=== PATIENT | male | born 1935 | race Caucasian/White ===

== ENCOUNTER 2023-02-03 12:12 | Inpatient (IN) | payer MEDICARE, OTHER ==
[~2023-02-03] VITALS: Ht 165.1 cm; Wt 59.0 kg
[2023-02-03] MEDS ORDERED: TAMS-3 PO (12:29)
[2023-02-03] MEDS ORDERED: POLY17PO4 PO (12:29)
[2023-02-03] MEDS ORDERED: ACET325C7 PO (12:29)
[2023-02-03] MEDS ORDERED: PANT40TA2 PO (12:29)
[2023-02-03] MEDS ORDERED: ROSU20TA2 PO (12:29)
[2023-02-03] MEDS ORDERED: METF-442 PO (12:29)
[2023-02-03] MEDS ORDERED: GUAI-755 PO (12:29)
[2023-02-03] MEDS ORDERED: DOCU-141 PO (12:29)
[2023-02-03] MEDS ORDERED: GABA-532 PO (12:29)
[2023-02-03] MEDS ORDERED: QUET25TA PO (12:29)
[2023-02-03] MEDS ORDERED: INSU100V39 SQ (12:29)
[2023-02-03] MEDS ORDERED: CHOL400T28 PO (12:29)
[2023-02-03] MEDS ORDERED: IPRA3AMP23 IH (12:29)
[2023-02-03] MEDS ORDERED: SENN8.6T19 PO (12:29)
[2023-02-03] MEDS ORDERED: FINA5TAB11 PO (12:29)
[2023-02-03] MEDS ORDERED: EMPA25TA PO (12:29)
[2023-02-03] MEDS ORDERED: APIX2.5T PO (12:29)
[2023-02-03] MEDS ORDERED: LACT10SO58 PO (12:29)
[2023-02-03 12:48] LABS: HEMATOCRIT 40.4 % (36.7-47.1); MEAN CORPUSCULAR VOLUME 87.4 fL (73.0-96.2); PLATELET COUNT (AUTO) 196 K/uL (152-348)
[2023-02-03 13:03] LABS: ETHANOL < 3 MG/DL (0-0)
[2023-02-03 13:08] LABS: ALANINE AMINOTRANSFERASE 19 U/L (16-63); ALKALINE PHOSPHATASE 64 U/L (50-136); ASPARTATE AMINOTRANSFERASE 19 U/L (15-37); BILIRUBIN,DIRECT 0.1 mg/dL (0.0-0.2); BILIRUBIN,TOTAL 0.3 mg/dL (0.2-1.0); CARBON DIOXIDE 30 mmol/L (21-32); CHLORIDE 102 mmol/L (98-107); CREATININE 0.8 mg/dL (0.6-1.3); GLUCOSE 137 mg/dL (74-106); POTASSIUM 4.2 mmol/L (3.5-5.1); TOTAL PROTEIN, SERUM 6.6 g/dL (6.4-8.2); UREA NITROGEN, BLOOD 27 mg/dL (7-18)
[2023-02-03 14:11] LABS: ACETAMINOPHEN < 2.0 ug/mL (10-30)
[2023-02-03] MEDS ORDERED: OLANZAPINE 10 MG VIAL IM ONE ×2 (14:15→14:17)
[2023-02-03 17:00] VITALS: BP 114/52
[2023-02-03] MEDS ORDERED: ZOLPIDEM 5 MG TABLET PO PRN (17:00)
[2023-02-03] MEDS ORDERED: MAGNESIUM HYDROXIDE 30 ML LIQUID UDC PO PRN (17:00)
[2023-02-03] MEDS ORDERED: ACETAMINOPHEN 325 MG TABLET PO PRN (17:00)
[2023-02-03] MEDS ORDERED: MAG HYDROX/AL HYDROX/SIMETH 30 ML LIQUID UDC PO PRN (17:00)
[2023-02-03] MEDS: LORAZEPAM 1 MG TABLET PO PRN (20:00)
[2023-02-03 20:10] VITALS: BP 139/74
[2023-02-03] MEDS ORDERED: DEXTROSE 50% 50 ML DISP.SYRIN IV PRN (22:30)
[2023-02-03] MEDS ORDERED: Medication Not On Formulary EA (Acetaminophen (Tylenol) 650 MG) PO SCH (22:30)
[2023-02-04] MEDS: PANTOPRAZOLE SODIUM 40 MG TABLET.DR PO SCH (06:06)
[2023-02-04] MEDS: BLOOD SUGAR DIAGNOSTIC 1 EACH STRIP VI SCH ×4 (06:32→21:08)
[2023-02-04 08:14] VITALS: BP 132/62
[2023-02-04 08:19] LABS: ALANINE AMINOTRANSFERASE 16 U/L (16-63); ALKALINE PHOSPHATASE 50 U/L (50-136); ASPARTATE AMINOTRANSFERASE 18 U/L (15-37); BILIRUBIN,TOTAL 0.3 mg/dL (0.2-1.0); CARBON DIOXIDE 33 mmol/L (21-32); CHLORIDE 108 mmol/L (98-107); CREATININE 0.7 mg/dL (0.6-1.3); GLUCOSE 133 mg/dL (74-106); POTASSIUM 4.2 mmol/L (3.5-5.1); TOTAL PROTEIN, SERUM 6.3 g/dL (6.4-8.2); UREA NITROGEN, BLOOD 19 mg/dL (7-18)
[2023-02-04] MEDS: TAMSULOSIN HCL 0.4 MG CAP.SR.24H PO SCH (08:54)
[2023-02-04] MEDS: APIXABAN 2.5 MG TABLET PO SCH ×2 (08:54→21:34)
[2023-02-04] MEDS: METFORMIN HCL 500 MG TABLET PO SCH ×2 (08:55→16:51)
[2023-02-04] MEDS: FINASTERIDE 5 MG TABLET PO SCH (08:55)
[2023-02-04] MEDS: DOCUSATE SODIUM 100 MG CAPSULE PO SCH ×2 (08:55→16:51)
[2023-02-04] MEDS: MIRALAX 17 GM POWD.PACK PO SCH (08:56)
[2023-02-04] MEDS: CHOLECALCIFEROL 400 UNITS TABLET PO SCH (08:56)
[2023-02-04] MEDS ORDERED: GABAPENTIN 100 MG CAPSULE PO SCH (09:00)
[2023-02-04] MEDS ORDERED: Medication Not On Formulary EA (Empagliflozin (Jardiance) 25 MG) PO SCH (09:00)
[2023-02-04] MEDS: INSULIN REGULAR, HUMAN 300 UNIT/3 ML VIAL SQ PRN ×2 (11:56→21:33)
[2023-02-04] MEDS: GABAPENTIN 300 MG CAPSULE PO SCH (16:52)
[2023-02-04 17:23] VITALS: BP 129/67
[2023-02-04 20:00] VITALS: BP 127/68
[2023-02-04] MEDS: ATORVASTATIN 40 MG TABLET PO SCH (21:29)
[2023-02-04] MEDS: LORAZEPAM 1 MG TABLET PO PRN (22:38)
[2023-02-05] MEDS: LORAZEPAM 1 MG TABLET PO PRN ×2 (02:55→16:40)
[2023-02-05] MEDS: PANTOPRAZOLE SODIUM 40 MG TABLET.DR PO SCH ×2 (06:06→06:08)
[2023-02-05] MEDS: BLOOD SUGAR DIAGNOSTIC 1 EACH STRIP VI SCH ×4 (06:46→20:25)
[2023-02-05 08:06] VITALS: BP 137/72
[2023-02-05] MEDS: MIRALAX 17 GM POWD.PACK PO SCH (08:21)
[2023-02-05] MEDS: METFORMIN HCL 500 MG TABLET PO SCH ×2 (08:21→16:40)
[2023-02-05] MEDS: DOCUSATE SODIUM 100 MG CAPSULE PO SCH ×2 (08:21→16:32)
[2023-02-05] MEDS: FINASTERIDE 5 MG TABLET PO SCH (08:22)
[2023-02-05] MEDS: GABAPENTIN 300 MG CAPSULE PO SCH ×2 (08:22→16:40)
[2023-02-05] MEDS: CHOLECALCIFEROL 400 UNITS TABLET PO SCH (08:22)
[2023-02-05] MEDS: APIXABAN 2.5 MG TABLET PO SCH ×2 (08:23→20:26)
[2023-02-05] MEDS: TAMSULOSIN HCL 0.4 MG CAP.SR.24H PO SCH (08:24)
[2023-02-05] MEDS: INSULIN REGULAR, HUMAN 300 UNIT/3 ML VIAL SQ PRN ×2 (11:55→16:31)
[2023-02-05 16:13] VITALS: BP 122/72
[2023-02-05] MEDS: ATORVASTATIN 40 MG TABLET PO SCH (20:25)
[2023-02-05] MEDS: QUETIAPINE FUMARATE 25 MG TABLET PO SCH (20:25)
[2023-02-05] MEDS ORDERED: QUETIAPINE FUMARATE 25 MG TABLET PO SCH (21:00)
[2023-02-06] MEDS: BLOOD SUGAR DIAGNOSTIC 1 EACH STRIP VI SCH ×4 (06:29→20:24)
[2023-02-06] MEDS: PANTOPRAZOLE SODIUM 40 MG TABLET.DR PO SCH (06:34)
[2023-02-06] MEDS: INSULIN REGULAR, HUMAN 300 UNIT/3 ML VIAL SQ PRN (07:31)
[2023-02-06 07:53] VITALS: BP 132/80
[2023-02-06] MEDS: DOCUSATE SODIUM 100 MG CAPSULE PO SCH ×2 (08:19→17:14)
[2023-02-06] MEDS: GABAPENTIN 300 MG CAPSULE PO SCH ×2 (08:21→17:14)
[2023-02-06] MEDS: MIRALAX 17 GM POWD.PACK PO SCH (08:22)
[2023-02-06] MEDS: CHOLECALCIFEROL 400 UNITS TABLET PO SCH (08:23)
[2023-02-06] MEDS: FINASTERIDE 5 MG TABLET PO SCH (08:24)
[2023-02-06] MEDS: METFORMIN HCL 500 MG TABLET PO SCH ×2 (08:24→17:14)
[2023-02-06] MEDS: EMPAGLIFLOZIN 25 MG TABLET PO SCH (08:24)
[2023-02-06] MEDS: TAMSULOSIN HCL 0.4 MG CAP.SR.24H PO SCH (08:24)
[2023-02-06] MEDS: APIXABAN 2.5 MG TABLET PO SCH ×2 (08:49→20:17)
[2023-02-06 16:34] VITALS: BP 130/67
[2023-02-06 20:01] VITALS: BP 138/79
[2023-02-06] MEDS: QUETIAPINE FUMARATE 25 MG TABLET PO SCH (20:17)
[2023-02-06] MEDS: ATORVASTATIN 40 MG TABLET PO SCH (20:17)
[2023-02-06] MEDS: LORAZEPAM 1 MG TABLET PO PRN (21:23)
[2023-02-07] MEDS: PANTOPRAZOLE SODIUM 40 MG TABLET.DR PO SCH (06:15)
[2023-02-07 07:30] VITALS: BP 137/75
[2023-02-07] MEDS: BLOOD SUGAR DIAGNOSTIC 1 EACH STRIP VI SCH ×4 (07:30→21:00)
[2023-02-07] MEDS: MIRALAX 17 GM POWD.PACK PO SCH (08:47)
[2023-02-07] MEDS: METFORMIN HCL 500 MG TABLET PO SCH ×2 (08:48→17:05)
[2023-02-07] MEDS: CHOLECALCIFEROL 400 UNITS TABLET PO SCH (08:48)
[2023-02-07] MEDS: TAMSULOSIN HCL 0.4 MG CAP.SR.24H PO SCH (08:48)
[2023-02-07] MEDS: GABAPENTIN 300 MG CAPSULE PO SCH ×2 (08:48→16:56)
[2023-02-07] MEDS: DOCUSATE SODIUM 100 MG CAPSULE PO SCH ×2 (08:48→16:56)
[2023-02-07] MEDS: FINASTERIDE 5 MG TABLET PO SCH (08:48)
[2023-02-07] MEDS: APIXABAN 2.5 MG TABLET PO SCH ×3 (08:49→21:53)
[2023-02-07] MEDS: EMPAGLIFLOZIN 25 MG TABLET PO SCH (08:50)
[2023-02-07] MEDS: GLUCERNA SHAKE 237 ML CAN PO SCH (08:50)
[2023-02-07 15:30] VITALS: BP 133/50
[2023-02-07] MEDS: INSULIN REGULAR, HUMAN 300 UNIT/3 ML VIAL SQ PRN (16:57)
[2023-02-07 20:00] VITALS: BP 119/72
[2023-02-07] MEDS: ATORVASTATIN 40 MG TABLET PO SCH ×2 (21:00→21:54)
[2023-02-07] MEDS: QUETIAPINE FUMARATE 25 MG TABLET PO SCH ×2 (21:00→21:53)
[2023-02-08] MEDS: PANTOPRAZOLE SODIUM 40 MG TABLET.DR PO SCH ×2 (06:47→06:51)
[2023-02-08] MEDS: BLOOD SUGAR DIAGNOSTIC 1 EACH STRIP VI SCH ×4 (07:22→20:55)
[2023-02-08 07:30] VITALS: BP 105/63
[2023-02-08] MEDS: METFORMIN HCL 500 MG TABLET PO SCH ×3 (08:00→17:22)
[2023-02-08] MEDS: DOCUSATE SODIUM 100 MG CAPSULE PO SCH ×3 (08:56→17:22)
[2023-02-08] MEDS: FINASTERIDE 5 MG TABLET PO SCH ×2 (08:56→09:00)
[2023-02-08] MEDS: TAMSULOSIN HCL 0.4 MG CAP.SR.24H PO SCH ×2 (08:56→09:00)
[2023-02-08] MEDS: GABAPENTIN 300 MG CAPSULE PO SCH ×3 (08:57→17:23)
[2023-02-08] MEDS: GLUCERNA SHAKE 237 ML CAN PO SCH (09:00)
[2023-02-08] MEDS: CHOLECALCIFEROL 400 UNITS TABLET PO SCH ×2 (09:00→09:02)
[2023-02-08] MEDS: MIRALAX 17 GM POWD.PACK PO SCH (09:00)
[2023-02-08] MEDS: APIXABAN 2.5 MG TABLET PO SCH ×3 (09:00→20:32)
[2023-02-08] MEDS: EMPAGLIFLOZIN 25 MG TABLET PO SCH ×2 (09:00→09:01)
[2023-02-08 15:23] VITALS: BP 127/71
[2023-02-08 20:04] VITALS: BP 157/82
[2023-02-08] MEDS: ATORVASTATIN 40 MG TABLET PO SCH (20:30)
[2023-02-08] MEDS: QUETIAPINE FUMARATE 25 MG TABLET PO SCH (20:31)
[2023-02-09] MEDS: BLOOD SUGAR DIAGNOSTIC 1 EACH STRIP VI SCH ×4 (06:39→20:31)
[2023-02-09] MEDS: PANTOPRAZOLE SODIUM 40 MG TABLET.DR PO SCH (06:40)
[2023-02-09 07:30] VITALS: BP 120/64
[2023-02-09] MEDS: TAMSULOSIN HCL 0.4 MG CAP.SR.24H PO SCH (08:28)
[2023-02-09] MEDS: FINASTERIDE 5 MG TABLET PO SCH (08:28)
[2023-02-09] MEDS: GABAPENTIN 300 MG CAPSULE PO SCH ×2 (08:28→17:28)
[2023-02-09] MEDS: DOCUSATE SODIUM 100 MG CAPSULE PO SCH ×2 (08:28→17:28)
[2023-02-09] MEDS: MIRALAX 17 GM POWD.PACK PO SCH (08:29)
[2023-02-09] MEDS: METFORMIN HCL 500 MG TABLET PO SCH ×2 (08:29→17:28)
[2023-02-09] MEDS: CHOLECALCIFEROL 400 UNITS TABLET PO SCH (08:31)
[2023-02-09] MEDS: EMPAGLIFLOZIN 25 MG TABLET PO SCH (08:31)
[2023-02-09] MEDS: APIXABAN 2.5 MG TABLET PO SCH ×2 (08:31→20:34)
[2023-02-09] MEDS: GLUCERNA SHAKE 237 ML CAN PO SCH (08:44)
[2023-02-09] MEDS: INSULIN REGULAR, HUMAN 300 UNIT/3 ML VIAL SQ PRN ×2 (12:24→17:30)
[2023-02-09 15:23] VITALS: BP 112/61
[2023-02-09 19:59] VITALS: BP 111/62
[2023-02-09] MEDS: ATORVASTATIN 40 MG TABLET PO SCH (20:33)
[2023-02-09] MEDS ORDERED: QUETIAPINE FUMARATE 25 MG TABLET PO SCH (21:00)
[2023-02-10] MEDS: PANTOPRAZOLE SODIUM 40 MG TABLET.DR PO SCH (06:02)
[2023-02-10] MEDS: BLOOD SUGAR DIAGNOSTIC 1 EACH STRIP VI SCH ×2 (06:19→12:11)
[2023-02-10 08:00] VITALS: BP 99/51
[2023-02-10] MEDS: GABAPENTIN 300 MG CAPSULE PO SCH (09:14)
[2023-02-10] MEDS: DOCUSATE SODIUM 100 MG CAPSULE PO SCH (09:14)
[2023-02-10] MEDS: TAMSULOSIN HCL 0.4 MG CAP.SR.24H PO SCH (09:14)
[2023-02-10] MEDS: FINASTERIDE 5 MG TABLET PO SCH (09:14)
[2023-02-10] MEDS: MIRALAX 17 GM POWD.PACK PO SCH (09:14)
[2023-02-10] MEDS: APIXABAN 2.5 MG TABLET PO SCH (09:19)
[2023-02-10] MEDS: EMPAGLIFLOZIN 25 MG TABLET PO SCH (09:20)
[2023-02-10] MEDS: CHOLECALCIFEROL 400 UNITS TABLET PO SCH (09:20)
[2023-02-10] MEDS: GLUCERNA SHAKE 237 ML CAN PO SCH (09:21)
[2023-02-10] MEDS: METFORMIN HCL 500 MG TABLET PO SCH (09:26)
[2023-02-10] MEDS: INSULIN REGULAR, HUMAN 300 UNIT/3 ML VIAL SQ PRN (12:13)
== END 2023-02-10 14:58 | DRG 885 ==
LOC: ER 12:12 → GPS 16:00
PROVIDERS: ADMIT Psychiatry & Neurology Psychiatry; ATTEND Nurse Practitioner Acute Care
DX: F29 Unspecified psychosis not due to a substance or known physiological condition (principal); J96.11 Chronic respiratory failure with hypoxia; G93.41 Metabolic encephalopathy; D68.59 Other primary thrombophilia; E87.0 Hyperosmolality and hypernatremia; F03.911 Unspecified dementia, unspecified severity, with agitation; F03.92 Unspecified dementia, unspecified severity, with psychotic disturbance; J44.9 Chronic obstructive pulmonary disease, unspecified; Z79.84 Long term (current) use of oral hypoglycemic drugs; Z79.4 Long term (current) use of insulin; N40.0 Benign prostatic hyperplasia without lower urinary tract symptoms; I51.7 Cardiomegaly; K21.9 Gastro-esophageal reflux disease without esophagitis; I25.10 Atherosclerotic heart disease of native coronary artery without angina pectoris; Z79.01 Long term (current) use of anticoagulants; F41.9 Anxiety disorder, unspecified; E78.5 Hyperlipidemia, unspecified; E11.9 Type 2 diabetes mellitus without complications
CPT/HCPCS: 36415; 85025; 93005; A4663; G0480; J1815; J2358

== ENCOUNTER 2023-10-24 18:43 | Inpatient (IN) | payer MEDICARE, OTHER ==
[~2023-10-24] VITALS: Ht 160 cm; Wt 49.0 kg
[~2023-10-24 18:43] MED LIST: ACET325C7 PO; APIX2.5T PO; CHOL400T28 PO; DOCU-141 PO; EMPA25TA PO; FINA5TAB11 PO; GABA-532 PO; GUAI-755 PO; INSU100V39 SQ; IPRA3AMP23 IH; LACT10SO58 PO; METF-442 PO; PANT40TA2 PO; POLY17PO4 PO; ROSU20TA2 PO; SENN8.6T19 PO; TAMS-3 PO
[2023-10-24 19:52] LABS: BASOPHILS # (AUTO) 0.1 K/UL (0.0-0.2); BASOPHILS % (AUTO) 1.8 % (0.0-2.0); EOSINOPHILS # (AUTO) 0.2 K/uL (0.0-0.7); EOSINOPHILS % (AUTO) 2.3 % (0.0-7.0); HEMATOCRIT 40.3 % (36.7-47.1); HEMOGLOBIN 13.5 g/dL (12.5-16.3); LYMPHOCYTES # (AUTO) 1.2 K/uL (0.8-4.8); MEAN CORPUSCULAR HEMOGLOBIN 29.7 uug (23.8-33.4); MEAN CORPUSCULAR HGB CONC 34 g/dL (32.5-36.3); MEAN CORPUSCULAR VOLUME 88.6 fL (73.0-96.2); MONOCYTES # (AUTO) 0.5 K/uL (0.1-1.30); MONOCYTES % (AUTO) 6.7 % (0.0-11.0); NEUTROPHILS # (AUTO) 6.2 K/uL (1.8-8.9); NEUTROPHILS % (AUTO) 75.2 % (38.5-71.5); PLATELET COUNT (AUTO) 228 K/uL (152-348); RED BLOOD CELL COUNT(AUTO) 4.55 MIL/uL (4.06-5.63); RED CELL DISTRIBUTION WIDTH 14.5 % (12.1-16.2); WHITE BLOOD COUNT (AUTO) 8.2 K/uL (3.6-10.2)
[2023-10-24 20:12] LABS: DIFFERENTIAL COMMENT 1
[2023-10-24 20:18] LABS: ETHANOL < 3 MG/DL (0-10)
[2023-10-24 20:40] LABS: *BILIRUBIN,URIN NEGATIVE (NEGATIVE); *BLOOD, URINE NEGATIVE (NEGATIVE); *CLARITY,URINE CLEAR (CLEAR); *COLOR,URINE YELLOW (YELLOW); *KETONES,URINE NEGATIVE (NEGATIVE); *PROTEIN,URINE NEGATIVE (NEGATIVE); *UROBILINOGEN,URINE 0.2 E.U./dl (NORMAL); LEUKOCYTE ESTERASE ,URINE NEGATIVE (NEGATIVE); NITRITE, URINE NEGATIVE (NEGATIVE)
[2023-10-24 20:42] LABS: ALANINE AMINOTRANSFERASE 8 U/L (16-63); ALBUMIN 3.6 g/dL (3.4-5.0); ALKALINE PHOSPHATASE 78 U/L (50-136); ASPARTATE AMINOTRANSFERASE 15 U/L (15-37); BILIRUBIN,DIRECT 0.1 mg/dL (0.0-0.2); BILIRUBIN,TOTAL 0.3 mg/dL (0.2-1.0); CARBON DIOXIDE 30 mmol/L (21-32); CREATININE 0.8 mg/dL (0.6-1.3); GLUCOSE 125 mg/dL (74-106); TOTAL PROTEIN, SERUM 6.8 g/dL (6.4-8.2); UREA NITROGEN, BLOOD 24 mg/dL (7-18)
[2023-10-24 20:46] LABS: ACETAMINOPHEN < 2.0 ug/mL (10-30)
[2023-10-24 20:47] LABS: UGLUCOSE 2+ (NEGATIVE)
[2023-10-24 20:48] LABS: RBC,URINE 0-3 /HPF (0-3); WBC,URINE 0-3 /HPF (0-3)
[2023-10-24 20:58] LABS: *AMPHETAMINE, URINE NEGATIVE (NEGATIVE); *BARBITURATE, URINE NEGATIVE (NEGATIVE); *BENZODIAZEPINE, URINE NEGATIVE (NEGATIVE); *CANNABINOID, URINE NEGATIVE (NEGATIVE); *COCCAINE, URINE NEGATIVE (NEGATIVE); *OPIATE, URINE NEGATIVE (NEGATIVE); *PHENCYCLIDINE SCREEN,URINE NEGATIVE (NEGATIVE)
[2023-10-24 21:02] LABS: CHLORIDE 104 mmol/L (98-107); POTASSIUM 4.1 mmol/L (3.5-5.1); SODIUM SERUM 142 mmol/L (136-145)
[2023-10-24 21:05] LABS: FENTANYL, URINE NEGATIVE (NEGATIVE)
[2023-10-24] MEDS ORDERED: HALOPERIDOL LACTATE 5 MG/1 ML VIAL ONE (23:17)
[2023-10-24] MEDS ORDERED: HALOPERIDOL LACTATE 5 MG/1 ML VIAL IM ONE (23:30)
[2023-10-25] MEDS ORDERED: LORAZEPAM 2 MG/1 ML VIAL ONE (01:11)
[2023-10-25] MEDS ORDERED: LORAZEPAM 2 MG/1 ML VIAL IM ONE (01:15)
[2023-10-25] MEDS ORDERED: ACETAMINOPHEN 325 MG TABLET PO PRN (16:45)
[2023-10-25] MEDS ORDERED: MAGNESIUM HYDROXIDE 30 ML LIQUID UDC PO PRN (16:45)
[2023-10-25] MEDS ORDERED: MAG HYDROX/AL HYDROX/SIMETH 30 ML LIQUID UDC PO PRN (16:45)
[2023-10-25] MEDS ORDERED: BLOOD SUGAR DIAGNOSTIC 1 EACH STRIP VI ONE (16:45)
[2023-10-25] MEDS ORDERED: QUETIAPINE FUMARATE 25 MG TABLET PO PRN ×2 (16:45→18:30)
[2023-10-25] MEDS ORDERED: ZOLPIDEM 5 MG TABLET PO PRN (16:45)
[2023-10-25 18:15] VITALS: BP 163/86; TEMP 98.4; O2SAT 94
[2023-10-25 19:55] VITALS: BP 115/50; TEMP 98.3; O2SAT 95
[2023-10-25] MEDS: QUETIAPINE FUMARATE 25 MG TABLET PO SCH (22:44)
[2023-10-26 07:48] VITALS: BP 153/83; TEMP 98.2; O2SAT 98
[2023-10-26] MEDS: DIVALPROEX SPRINKLE 125 MG CAP.SPRINK PO SCH ×2 (08:44→16:20)
[2023-10-26 09:17] LABS: ALANINE AMINOTRANSFERASE 23 U/L (16-63); ALBUMIN 4.1 g/dL (3.4-5.0); ALKALINE PHOSPHATASE 68 U/L (50-136); ASPARTATE AMINOTRANSFERASE 25 U/L (15-37); BILIRUBIN,TOTAL 0.5 mg/dL (0.2-1.0); CALCIUM 9.1 mg/dL (8.5-10.1); CARBON DIOXIDE 29 mmol/L (21-32); CHLORIDE 102 mmol/L (98-107); CREATININE 0.8 mg/dL (0.6-1.3); GLUCOSE 140 mg/dL (74-106); POTASSIUM 4.1 mmol/L (3.5-5.1); SODIUM SERUM 141 mmol/L (136-145); TOTAL PROTEIN, SERUM 7.6 g/dL (6.4-8.2); UREA NITROGEN, BLOOD 17 mg/dL (7-18)
[2023-10-26 15:07] VITALS: BP 165/70; TEMP 98; O2SAT 98
[2023-10-26 17:00] VITALS: BP 140/71; TEMP 98.3; O2SAT 99
[2023-10-26 20:03] VITALS: BP 111/75; TEMP 98.1; O2SAT 94
[2023-10-26] MEDS: QUETIAPINE FUMARATE 25 MG TABLET PO SCH (20:10)
[2023-10-26] MEDS: MIRTAZAPINE 15 MG TABLET PO SCH (20:10)
[2023-10-26] MEDS: ZOLPIDEM 5 MG TABLET PO PRN (22:51)
[2023-10-27] MEDS ORDERED: ATOR40TA PO (08:15)
[2023-10-27] MEDS ORDERED: POLY15DR31 EACHEYE (08:17)
[2023-10-27] MEDS ORDERED: MAG355OR18 PO (08:20)
[2023-10-27] MEDS ORDERED: MAGN400O6 PO (08:21)
[2023-10-27] MEDS ORDERED: INSU100V28 (08:38)
[2023-10-27] MEDS ORDERED: OMEP20CA15 PO (08:39)
[2023-10-27 08:40] VITALS: BP 143/70; TEMP 98; O2SAT 98
[2023-10-27] MEDS ORDERED: CHOL100045 PO (08:40)
[2023-10-27] MEDS: DIVALPROEX SPRINKLE 125 MG CAP.SPRINK PO SCH ×3 (09:06→17:00)
[2023-10-27 15:10] VITALS: BP 109/62; TEMP 98.2; O2SAT 95
[2023-10-27] MEDS: MUPIROCIN 2% OINT 22 GM TUBE NS SCH (20:20)
[2023-10-27 20:23] VITALS: BP 132/66; TEMP 98.3; O2SAT 96
[2023-10-27] MEDS: MIRTAZAPINE 15 MG TABLET PO SCH (20:24)
[2023-10-27] MEDS: QUETIAPINE FUMARATE 25 MG TABLET PO SCH (20:24)
[2023-10-28 07:59] VITALS: BP 124/70; TEMP 97.8; O2SAT 96
[2023-10-28] MEDS: QUETIAPINE FUMARATE 25 MG TABLET PO SCH ×2 (09:00→20:55)
[2023-10-28] MEDS: MUPIROCIN 2% OINT 22 GM TUBE NS SCH ×2 (09:00→20:54)
[2023-10-28] MEDS: DIVALPROEX SPRINKLE 125 MG CAP.SPRINK PO SCH ×3 (09:00→18:02)
[2023-10-28 16:16] VITALS: BP 128/70; TEMP 98; O2SAT 96
[2023-10-28 20:00] VITALS: BP 123/72; TEMP 97.9; O2SAT 94
[2023-10-28] MEDS: MIRTAZAPINE 15 MG TABLET PO SCH (20:54)
[2023-10-29 08:12] VITALS: BP 145/70; TEMP 98.2; O2SAT 98
[2023-10-29] MEDS: DIVALPROEX SPRINKLE 125 MG CAP.SPRINK PO SCH ×3 (09:06→17:31)
[2023-10-29] MEDS: MUPIROCIN 2% OINT 22 GM TUBE NS SCH ×2 (09:07→20:37)
[2023-10-29] MEDS: QUETIAPINE FUMARATE 25 MG TABLET PO SCH ×2 (12:38→20:37)
[2023-10-29] MEDS ORDERED: MAG HYDROX/AL HYDROX/SIMETH 30 ML LIQUID UDC PO PRN (15:45)
[2023-10-29] MEDS ORDERED: MAGNESIUM HYDROXIDE 30 ML LIQUID UDC PO PRN (15:45)
[2023-10-29 16:46] VITALS: BP 114/62; TEMP 98.1; O2SAT 97
[2023-10-29] MEDS: APIXABAN 2.5 MG TABLET PO SCH (17:00)
[2023-10-29] MEDS: DOCUSATE SODIUM 100 MG CAPSULE PO SCH (17:00)
[2023-10-29] MEDS ORDERED: Medication Not On Formulary EA (Metformin Hcl 1,000 MG) PO SCH (17:00)
[2023-10-29] MEDS ORDERED: GABAPENTIN 100 MG CAPSULE PO SCH (17:00)
[2023-10-29] MEDS: METFORMIN HCL 500 MG TABLET PO SCH (17:32)
[2023-10-29 20:00] VITALS: BP 120/60; TEMP 98; O2SAT 95
[2023-10-29] MEDS: ATORVASTATIN 40 MG TABLET PO SCH (20:37)
[2023-10-29] MEDS: TAMSULOSIN HCL 0.4 MG CAP.SR.24H PO SCH (20:37)
[2023-10-29] MEDS: MIRTAZAPINE 15 MG TABLET PO SCH (20:37)
[2023-10-29] MEDS: GABAPENTIN 300 MG CAPSULE PO SCH (20:37)
[2023-10-29] MEDS: ZOLPIDEM 5 MG TABLET PO PRN (23:04)
[2023-10-30] MEDS: PANTOPRAZOLE SODIUM 40 MG TABLET.DR PO SCH (06:10)
[2023-10-30 07:49] VITALS: BP 140/67; TEMP 98; O2SAT 97
[2023-10-30] MEDS: METFORMIN HCL 500 MG TABLET PO SCH ×2 (08:00→16:09)
[2023-10-30] MEDS ORDERED: Medication Not On Formulary EA (Omeprazole 20 MG) PO SCH (09:00)
[2023-10-30] MEDS ORDERED: Medication Not On Formulary EA (Empagliflozin (Jardiance) 25 MG) PO SCH (09:00)
[2023-10-30] MEDS: EMPAGLIFLOZIN 25 MG TABLET PO SCH (09:00)
[2023-10-30] MEDS: DOCUSATE SODIUM 100 MG CAPSULE PO SCH ×2 (09:00→16:08)
[2023-10-30] MEDS: MIRALAX 17 GM POWD.PACK PO SCH (09:03)
[2023-10-30] MEDS: FINASTERIDE 5 MG TABLET PO SCH (09:04)
[2023-10-30] MEDS: DIVALPROEX SPRINKLE 125 MG CAP.SPRINK PO SCH ×3 (09:04→16:08)
[2023-10-30] MEDS: MUPIROCIN 2% OINT 22 GM TUBE NS SCH ×2 (09:04→20:33)
[2023-10-30] MEDS: APIXABAN 2.5 MG TABLET PO SCH ×2 (09:07→16:08)
[2023-10-30] MEDS: GABAPENTIN 300 MG CAPSULE PO SCH ×2 (09:07→20:08)
[2023-10-30] MEDS: QUETIAPINE FUMARATE 25 MG TABLET PO SCH ×2 (12:23→20:11)
[2023-10-30 16:11] VITALS: BP 121/57; TEMP 97.9; O2SAT 97
[2023-10-30 20:04] VITALS: BP 128/64; TEMP 98; O2SAT 96
[2023-10-30] MEDS: TAMSULOSIN HCL 0.4 MG CAP.SR.24H PO SCH (20:08)
[2023-10-30] MEDS: ATORVASTATIN 40 MG TABLET PO SCH (20:08)
[2023-10-30] MEDS: MIRTAZAPINE 15 MG TABLET PO SCH (20:10)
[2023-10-30] MEDS: ZOLPIDEM 5 MG TABLET PO PRN (21:15)
[2023-10-31] MEDS: PANTOPRAZOLE SODIUM 40 MG TABLET.DR PO SCH (06:16)
[2023-10-31 08:00] VITALS: BP 125/61; TEMP 97.8; O2SAT 95
[2023-10-31] MEDS: METFORMIN HCL 500 MG TABLET PO SCH ×3 (08:00→17:23)
[2023-10-31 08:41] LABS: ALANINE AMINOTRANSFERASE 24 U/L (16-63); ASPARTATE AMINOTRANSFERASE 15 U/L (15-37)
[2023-10-31] MEDS: DOCUSATE SODIUM 100 MG CAPSULE PO SCH ×3 (08:45→17:24)
[2023-10-31] MEDS: GABAPENTIN 300 MG CAPSULE PO SCH ×3 (08:45→20:30)
[2023-10-31] MEDS: DIVALPROEX SPRINKLE 125 MG CAP.SPRINK PO SCH ×4 (08:45→17:23)
[2023-10-31] MEDS: FINASTERIDE 5 MG TABLET PO SCH ×2 (08:45→09:00)
[2023-10-31] MEDS: EMPAGLIFLOZIN 25 MG TABLET PO SCH ×2 (08:45→09:00)
[2023-10-31] MEDS: MIRALAX 17 GM POWD.PACK PO SCH ×2 (08:46→09:00)
[2023-10-31] MEDS: APIXABAN 2.5 MG TABLET PO SCH ×3 (08:47→17:31)
[2023-10-31] MEDS: MUPIROCIN 2% OINT 22 GM TUBE NS SCH ×3 (08:48→20:31)
[2023-10-31 08:57] LABS: VALPROIC ACID < 3 ug/mL (50-100)
[2023-10-31] MEDS: QUETIAPINE FUMARATE 25 MG TABLET PO SCH ×2 (12:37→20:30)
[2023-10-31 16:00] VITALS: BP 124/69; TEMP 98.6; O2SAT 94
[2023-10-31 19:38] VITALS: BP 112/65; TEMP 98.2; O2SAT 94
[2023-10-31] MEDS: MIRTAZAPINE 15 MG TABLET PO SCH (20:30)
[2023-10-31] MEDS: ATORVASTATIN 40 MG TABLET PO SCH (20:30)
[2023-10-31] MEDS: TAMSULOSIN HCL 0.4 MG CAP.SR.24H PO SCH (20:31)
[2023-11-01] MEDS: PANTOPRAZOLE SODIUM 40 MG TABLET.DR PO SCH (06:57)
[2023-11-01 08:00] VITALS: BP 99/78; TEMP 98.1; O2SAT 97
[2023-11-01] MEDS: METFORMIN HCL 500 MG TABLET PO SCH ×2 (08:32→17:26)
[2023-11-01] MEDS: GABAPENTIN 300 MG CAPSULE PO SCH ×2 (08:32→21:25)
[2023-11-01] MEDS: DOCUSATE SODIUM 100 MG CAPSULE PO SCH ×2 (08:32→17:26)
[2023-11-01] MEDS: FINASTERIDE 5 MG TABLET PO SCH (08:32)
[2023-11-01] MEDS: MIRALAX 17 GM POWD.PACK PO SCH (08:32)
[2023-11-01] MEDS: DIVALPROEX SPRINKLE 125 MG CAP.SPRINK PO SCH ×3 (08:33→21:25)
[2023-11-01] MEDS: EMPAGLIFLOZIN 25 MG TABLET PO SCH (08:34)
[2023-11-01] MEDS: APIXABAN 2.5 MG TABLET PO SCH ×2 (08:45→17:27)
[2023-11-01] MEDS: MUPIROCIN 2% OINT 22 GM TUBE NS SCH ×2 (08:46→21:29)
[2023-11-01] MEDS: QUETIAPINE FUMARATE 25 MG TABLET PO SCH ×2 (13:07→21:25)
[2023-11-01] MEDS: ATORVASTATIN 40 MG TABLET PO SCH (21:25)
[2023-11-01] MEDS: TAMSULOSIN HCL 0.4 MG CAP.SR.24H PO SCH (21:25)
[2023-11-01] MEDS: MIRTAZAPINE 15 MG TABLET PO SCH (21:25)
[2023-11-02] MEDS: PANTOPRAZOLE SODIUM 40 MG TABLET.DR PO SCH (07:00)
[2023-11-02 08:29] VITALS: BP 152/79; TEMP 97.9; O2SAT 98
[2023-11-02] MEDS: DOCUSATE SODIUM 100 MG CAPSULE PO SCH ×2 (08:33→17:34)
[2023-11-02] MEDS: METFORMIN HCL 500 MG TABLET PO SCH ×2 (08:33→17:34)
[2023-11-02] MEDS: MUPIROCIN 2% OINT 22 GM TUBE NS SCH ×2 (08:33→21:16)
[2023-11-02] MEDS: FINASTERIDE 5 MG TABLET PO SCH (08:33)
[2023-11-02] MEDS: MIRALAX 17 GM POWD.PACK PO SCH (08:33)
[2023-11-02] MEDS: GABAPENTIN 300 MG CAPSULE PO SCH ×2 (08:34→21:18)
[2023-11-02] MEDS: EMPAGLIFLOZIN 25 MG TABLET PO SCH (08:34)
[2023-11-02] MEDS: APIXABAN 2.5 MG TABLET PO SCH ×2 (08:35→17:36)
[2023-11-02] MEDS: DIVALPROEX SPRINKLE 125 MG CAP.SPRINK PO SCH ×3 (08:36→21:17)
[2023-11-02] MEDS: QUETIAPINE FUMARATE 25 MG TABLET PO SCH ×2 (14:36→21:17)
[2023-11-02 16:30] VITALS: BP 123/77; TEMP 97; O2SAT 95
[2023-11-02 20:00] VITALS: BP 133/77; TEMP 98.6; O2SAT 98
[2023-11-02] MEDS: ATORVASTATIN 40 MG TABLET PO SCH (21:18)
[2023-11-02] MEDS: TAMSULOSIN HCL 0.4 MG CAP.SR.24H PO SCH (21:18)
[2023-11-02] MEDS: MIRTAZAPINE 15 MG TABLET PO SCH (21:18)
[2023-11-03] MEDS: PANTOPRAZOLE SODIUM 40 MG TABLET.DR PO SCH (06:20)
[2023-11-03] MEDS: EMPAGLIFLOZIN 25 MG TABLET PO SCH (08:27)
[2023-11-03] MEDS: DOCUSATE SODIUM 100 MG CAPSULE PO SCH ×2 (08:28→17:21)
[2023-11-03] MEDS: GABAPENTIN 300 MG CAPSULE PO SCH ×2 (08:28→21:00)
[2023-11-03] MEDS: MIRALAX 17 GM POWD.PACK PO SCH (08:28)
[2023-11-03] MEDS: FINASTERIDE 5 MG TABLET PO SCH (08:28)
[2023-11-03] MEDS: DIVALPROEX SPRINKLE 125 MG CAP.SPRINK PO SCH ×3 (08:28→21:00)
[2023-11-03] MEDS: METFORMIN HCL 500 MG TABLET PO SCH ×2 (08:28→17:21)
[2023-11-03] MEDS: APIXABAN 2.5 MG TABLET PO SCH ×2 (08:30→17:25)
[2023-11-03 08:33] VITALS: BP 119/53; TEMP 97.8; O2SAT 96
[2023-11-03] MEDS: MUPIROCIN 2% OINT 22 GM TUBE NS SCH (08:39)
[2023-11-03] MEDS: QUETIAPINE FUMARATE 25 MG TABLET PO SCH ×2 (12:32→21:00)
[2023-11-03] MEDS ORDERED: REMEDY ESSENTIAL ZINC PASTE 113 GM TOP PRN (16:45)
[2023-11-03 17:49] VITALS: BP 110/64; TEMP 98.1; O2SAT 96
[2023-11-03 20:00] VITALS: BP 122/66; TEMP 98.3; O2SAT 97
[2023-11-03] MEDS: ATORVASTATIN 40 MG TABLET PO SCH (21:00)
[2023-11-03] MEDS: MIRTAZAPINE 15 MG TABLET PO SCH (21:00)
[2023-11-03] MEDS: TAMSULOSIN HCL 0.4 MG CAP.SR.24H PO SCH (21:00)
[2023-11-04] MEDS: PANTOPRAZOLE SODIUM 40 MG TABLET.DR PO SCH (07:00)
[2023-11-04] MEDS: METFORMIN HCL 500 MG TABLET PO SCH ×2 (08:00→17:25)
[2023-11-04 08:02] VITALS: BP 115/76; TEMP 98.4; O2SAT 97
[2023-11-04] MEDS: DIVALPROEX SPRINKLE 125 MG CAP.SPRINK PO SCH ×3 (08:34→21:02)
[2023-11-04] MEDS: DOCUSATE SODIUM 100 MG CAPSULE PO SCH ×2 (08:34→16:18)
[2023-11-04] MEDS: MIRALAX 17 GM POWD.PACK PO SCH (08:35)
[2023-11-04] MEDS: FINASTERIDE 5 MG TABLET PO SCH (08:35)
[2023-11-04] MEDS: GABAPENTIN 300 MG CAPSULE PO SCH ×2 (08:35→21:02)
[2023-11-04] MEDS: APIXABAN 2.5 MG TABLET PO SCH ×2 (08:35→16:18)
[2023-11-04] MEDS: EMPAGLIFLOZIN 25 MG TABLET PO SCH (08:35)
[2023-11-04] MEDS: QUETIAPINE FUMARATE 25 MG TABLET PO SCH ×2 (12:10→21:02)
[2023-11-04 15:02] VITALS: BP 125/76; TEMP 97.7; O2SAT 96
[2023-11-04 20:00] VITALS: BP 131/57; TEMP 98.7; O2SAT 97
[2023-11-04] MEDS: TAMSULOSIN HCL 0.4 MG CAP.SR.24H PO SCH (21:02)
[2023-11-04] MEDS: MIRTAZAPINE 15 MG TABLET PO SCH (21:03)
[2023-11-04] MEDS: ATORVASTATIN 40 MG TABLET PO SCH (21:11)
[2023-11-05] MEDS: PANTOPRAZOLE SODIUM 40 MG TABLET.DR PO SCH (06:11)
[2023-11-05 08:00] VITALS: BP 128/67; TEMP 97.2; O2SAT 95
[2023-11-05] MEDS: METFORMIN HCL 500 MG TABLET PO SCH ×2 (08:00→17:10)
[2023-11-05] MEDS: DIVALPROEX SPRINKLE 125 MG CAP.SPRINK PO SCH ×3 (08:36→20:03)
[2023-11-05] MEDS: GABAPENTIN 300 MG CAPSULE PO SCH ×2 (08:36→20:02)
[2023-11-05] MEDS: QUETIAPINE FUMARATE 25 MG TABLET PO SCH ×3 (08:36→20:03)
[2023-11-05] MEDS: DOCUSATE SODIUM 100 MG CAPSULE PO SCH ×2 (08:37→16:40)
[2023-11-05] MEDS: EMPAGLIFLOZIN 25 MG TABLET PO SCH (08:39)
[2023-11-05] MEDS: APIXABAN 2.5 MG TABLET PO SCH ×2 (08:39→16:42)
[2023-11-05] MEDS: MIRALAX 17 GM POWD.PACK PO SCH (08:40)
[2023-11-05] MEDS: FINASTERIDE 5 MG TABLET PO SCH (08:40)
[2023-11-05 16:00] VITALS: BP 129/72; TEMP 98.5; O2SAT 96
[2023-11-05 20:01] VITALS: BP 95/54; TEMP 98.4; O2SAT 96
[2023-11-05] MEDS: MIRTAZAPINE 15 MG TABLET PO SCH (20:03)
[2023-11-05] MEDS: ATORVASTATIN 40 MG TABLET PO SCH (20:03)
[2023-11-05] MEDS: TAMSULOSIN HCL 0.4 MG CAP.SR.24H PO SCH (20:03)
[2023-11-05] MEDS: ZOLPIDEM 5 MG TABLET PO PRN (23:11)
[2023-11-06] MEDS: PANTOPRAZOLE SODIUM 40 MG TABLET.DR PO SCH (07:00)
[2023-11-06 07:55] VITALS: BP 127/60; TEMP 98; O2SAT 97
[2023-11-06] MEDS: METFORMIN HCL 500 MG TABLET PO SCH (08:41)
[2023-11-06] MEDS: FINASTERIDE 5 MG TABLET PO SCH (08:41)
[2023-11-06] MEDS: DIVALPROEX SPRINKLE 125 MG CAP.SPRINK PO SCH (08:41)
[2023-11-06] MEDS: MIRALAX 17 GM POWD.PACK PO SCH (08:42)
[2023-11-06] MEDS: EMPAGLIFLOZIN 25 MG TABLET PO SCH (08:42)
[2023-11-06] MEDS: QUETIAPINE FUMARATE 25 MG TABLET PO SCH ×2 (08:42→12:13)
[2023-11-06] MEDS: GABAPENTIN 300 MG CAPSULE PO SCH (08:42)
[2023-11-06] MEDS: DOCUSATE SODIUM 100 MG CAPSULE PO SCH (08:42)
[2023-11-06] MEDS: APIXABAN 2.5 MG TABLET PO SCH (08:43)
== END 2023-11-06 13:00 | DRG 885 ==
LOC: ER 18:48 → GPS 10-25 16:34
PROVIDERS: ADMIT Psychiatry & Neurology Psychiatry; ATTEND Nurse Practitioner Acute Care
DX: F39 Unspecified mood [affective] disorder (principal); G93.41 Metabolic encephalopathy; F03.911 Unspecified dementia, unspecified severity, with agitation; F03.918 Unspecified dementia, unspecified severity, with other behavioral disturbance; F03.92 Unspecified dementia, unspecified severity, with psychotic disturbance; F03.94 Unspecified dementia, unspecified severity, with anxiety; Z91.83 Wandering in diseases classified elsewhere; E78.5 Hyperlipidemia, unspecified; J44.9 Chronic obstructive pulmonary disease, unspecified; I25.10 Atherosclerotic heart disease of native coronary artery without angina pectoris; E11.9 Type 2 diabetes mellitus without complications; Z79.84 Long term (current) use of oral hypoglycemic drugs; K21.9 Gastro-esophageal reflux disease without esophagitis; N40.0 Benign prostatic hyperplasia without lower urinary tract symptoms; E86.0 Dehydration; I11.9 Hypertensive heart disease without heart failure; Z79.01 Long term (current) use of anticoagulants; Z79.4 Long term (current) use of insulin; Z79.899 Other long term (current) drug therapy; R79.89 Other specified abnormal findings of blood chemistry
CPT/HCPCS: 36415; 80164; 84450; 84460; 85025; 85049; 93005; A4606; A4663; G0480; J1630; J2060